=== PATIENT | female | born 1990 | race Caucasian/White ===

== ENCOUNTER 2019-10-30 14:16 | Outpatient (CLI) | payer OTHER ==
--- NOTE | 2019-10-30 14:29 | RAD ---
XR Chest Pa Lat STANDARD HISTORY: Cough COMPARISON: None FINDINGS: The heart size is normal. The lungs are well expanded without focal areas of consolidation, pneumothorax or pleural effusions. IMPRESSION: No radiographic evidence of acute cardiopulmonary process.
== END 2019-10-30 14:17 | disposition home or self-care (01) ==
LOC: BICRAD 14:16
PROVIDERS: ATTEND Internal Medicine Rheumatology
DX: R05 Cough (principal)
CPT/HCPCS: 71046